=== PATIENT | male | born 2000 | race American Indian/Alaskan Native ===

== ENCOUNTER 2021-02-04 11:06 | Observation (INO) | payer OTHER, MEDICAID ==
[2021-02-04] MEDS ORDERED: Lactated Ringers 1,000 ML IV ONE (11:28)
[2021-02-04] MEDS ORDERED: Morphine 4 MG/ML Syringe IVPUSH ONE (11:31)
[2021-02-04] MEDS ORDERED: Iopamidol 612 MG/ML 100 ML Bottle IVPUSH ONE (11:31)
[2021-02-04 11:50] LABS: ANION GAP 15.7 mEq/L (7-13); CHLORIDE,CL 100 mmol/L (98-107); SODIUM,NA 141 mmol/L (136-145)
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
[2021-02-04] MEDS ORDERED: Sodium Chloride 0.9% 10 ML Syringe FLUSH PRN (14:10)
[2021-02-04] MEDS ORDERED: Acetaminophen 325 MG Tab PO PRN (14:10)
[2021-02-04] MEDS ORDERED: Morphine 2 MG/ML SYRINGE IVPUSH PRN (14:10)
[2021-02-04] MEDS ORDERED: Ondansetron 4 MG/2 ML SDV IVPUSH PRN (14:10)
[2021-02-04] MEDS ORDERED: Diphtheria,Pertussis(Acell),Tetanus Vaccine 0.5 ML Syringe IM ONE (14:14)
[2021-02-04] MEDS ORDERED: LORazepam 2 MG/ML SDV IV PRN (14:14)
[2021-02-04] MEDS ORDERED: Bacitracin Oint 28.35 GM Tube TOP SCH (14:15)
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
[2021-02-04] MEDS: Sodium Chloride 0.9% 1,000 ML IV SCH (15:07)
[2021-02-04] MEDS: Acetaminophen/oxyCODONE 325-5 MG Tab PO PRN (17:21)
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
[2021-02-05] MEDS: Acetaminophen/oxyCODONE 325-5 MG Tab PO PRN ×2 (00:17→08:36)
[2021-02-05] MEDS: Sodium Chloride 0.9% 1,000 ML IV SCH (03:23)
[2021-02-05 07:01] LABS: ANION GAP 10.6 mEq/L (7-13); CHLORIDE,CL 104 mmol/L (98-107); SODIUM,NA 140 mmol/L (136-145)
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
--- NOTE | 2021-02-05 08:59 | CR ---
PROCEDURE INFORMATION: Exam: XR Chest Exam date and time: 02/05/2021 8:07 AM Age: 20 years old Clinical indication: Pain; Other: Chest HX trauma TECHNIQUE: Imaging protocol: XR of the chest. Views: 1 view. COMPARISON: CT Chest Abdomen Pelvis w Cont 02/04/2021 11:38 AM FINDINGS: Lungs: Unremarkable. No consolidation. Pleural spaces: Unremarkable. No pleural effusion. No pneumothorax. Heart/Mediastinum: Unremarkable. No cardiomegaly. Bones/joints: Unremarkable. IMPRESSION: No evidence for acute pulmonary disease.
[2021-02-05] MEDS: Bacitracin Oint 28.35 GM Tube TOP SCH (09:56)
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
[2021-02-06] MEDS: Acetaminophen/oxyCODONE 325-5 MG Tab PO PRN (09:49)
[2021-02-06] MEDS: Bacitracin Oint 28.35 GM Tube TOP SCH (10:47)
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
== END 2021-02-06 13:30 | disposition home or self-care (01) ==
LOC: DL.ED 11:06 → DL.MS 14:02
PROVIDERS: ADMIT Internal Medicine; ATTEND Internal Medicine
DX: F10.129 Alcohol abuse with intoxication, unspecified (principal); E88.09 Other disorders of plasma-protein metabolism, not elsewhere classified; R74.01 Elevation of levels of liver transaminase levels; F17.200 Nicotine dependence, unspecified, uncomplicated; Z20.822 Contact with and (suspected) exposure to COVID-19; V89.2XXA Person injured in unspecified motor-vehicle accident, traffic, initial encounter; Z98.890 Other specified postprocedural states
CPT/HCPCS: 36415; 70450; 71045; 71260; 72125; 73560; 73700; 74177; 80053; 80305; 80307; 82550; 84484; 85025; 85610; 85730; 87635; 90471; 90715; 97161; 99217; 99219; 99225; A9270; J2270; J7030; J7120; Q9967; U0002

== ENCOUNTER 2022-01-09 13:04 | Emergency (ER) | payer MEDICAID ==
[2022-01-09 14:12] LABS: CORONAVIRUS COVID-19 NAA NEGATIVE (NEGATIVE)
[2022-01-09 14:40] LABS: ANION GAP 14.9 mEq/L (7-13); CHLORIDE,CL 105 mmol/L (98-107); SODIUM,NA 142 mmol/L (136-145)
[2022-01-09] MEDS: Codeine/guaiFENesin 10-100 MG/5 ML Syrup 5 ML Cup PO ONE (14:54)
[2022-01-09] MEDS: Cephalexin 500 MG Cap PO ONE (16:00)
== END 2022-01-09 16:02 | disposition home or self-care (01) ==
LOC: DL.ED 13:04
DX: J40 Bronchitis, not specified as acute or chronic (principal); F17.210 Nicotine dependence, cigarettes, uncomplicated; Z20.822 Contact with and (suspected) exposure to COVID-19
CPT/HCPCS: 0240U; 36415; 71046; 80053; 83605; 85025; 87040; 99283; 99284; A9270

== ENCOUNTER 2022-10-04 21:43 | Emergency (ER) | payer MEDICAID | END 2022-10-04 23:09 | LOC: DL.ED 21:43 | DX: Z02.89 Encounter for other administrative examinations (principal); Z20.822 Contact with and (suspected) exposure to COVID-19 | CPT/HCPCS: 99282; 99283; U0002 ==

== ENCOUNTER 2024-10-20 07:42 | Emergency (ER) | payer MEDICAID ==
[2024-10-20] MEDS: Lidocaine 1% 30 ML SDV INJECT ONE (08:30)
[2024-10-20] MEDS: Ibuprofen 800 MG Tab PO ONE (10:09)
[2024-10-20] MEDS: Bacitracin Oint 1 GM U/D Packet TOP ONE (10:09)
== END 2024-10-20 10:13 | disposition home or self-care (01) ==
LOC: DL.ED 07:42
DX: S01.111A Laceration without foreign body of right eyelid and periocular area, initial encounter (principal); S40.011A Contusion of right shoulder, initial encounter; I10 Essential (primary) hypertension; Z79.899 Other long term (current) drug therapy; W00.0XXA Fall on same level due to ice and snow, initial encounter; Y93.9 Activity, unspecified; Y92.9 Unspecified place or not applicable
CPT/HCPCS: 12013; 73000; 73030; 99284; A9270; J3490

== ENCOUNTER 2025-01-13 20:27 | Emergency (ER) | payer MEDICAID | END 2025-01-13 20:41 | disposition home or self-care (01) | LOC: DL.ED 20:27 | DX: S93.402A Sprain of unspecified ligament of left ankle, initial encounter (principal); S20.212A Contusion of left front wall of thorax, initial encounter; I10 Essential (primary) hypertension; F17.210 Nicotine dependence, cigarettes, uncomplicated; Z79.899 Other long term (current) drug therapy; X58.XXXA Exposure to other specified factors, initial encounter | CPT/HCPCS: 71100-LT; 73630-LT; 99282; 99283 ==

== ENCOUNTER 2025-02-13 03:25 | Emergency (ER) | payer MEDICAID ==
[~2025-02-13 03:25] MED LIST: Sodium Chloride 0.9% 10 ML Syringe FLUSH PRN
[2025-02-13 03:31] LABS: HEMATOCRIT 45.5 % (40.0-54.0); HEMOGLOBIN 15.5 g/dL (14.0-18.0); MEAN CORPUSCULAR HEMOGLOBIN 30.6 pg (27.0-34.0); MEAN CORPUSCULAR HGB CONC 34.1 g/dL (33.0-35.0); MEAN CORPUSCULAR VOLUME 89.7 fL (80-100); PLATELET COUNT,PLT 284 10^3/uL (150-450); RED BLOOD CELL COUNT 5.07 10^6/uL (4.6-6.2); WHITE BLOOD CELL COUNT,WBC 11.6 10^3/uL (5.0-10.0)
[2025-02-13 03:36] LABS: EOSINOPHILS PERCENT AUTO 1.8 % (1.0-3.0); LYMPHOCYTES PERCENT AUTO 38.4 % (20.5-50.1); MONOCYTES PERCENT AUTO 9.4 % (2-8); NEUTROPHILS PERCENT AUTO 50.1 % (42.2-75.2)
[2025-02-13 03:37] LABS: BASOPHILS PERCENT AUTO 0.3 % (0.0-1.0)
[2025-02-13] MEDS ORDERED: Lidocaine 1% with EPINEPHrine 1:100,000 20 ML MDV INJECT ONE (03:41)
[2025-02-13 03:50] LABS: PROTHROMBIN TIME 10.1 SEC (9.0-12.0); PTT,PARTIAL THROMBOPLSTIN TIME 22.5 SEC (22.0-34.0)
[2025-02-13] MEDS ORDERED: fentaNYL 100 MCG/2 ML SDV IVPUSH ONE (03:50)
[2025-02-13] MEDS ORDERED: Naloxone 2 MG/2 ML Syringe IVPUSH PRN (03:50)
[2025-02-13] MEDS ORDERED: Midazolam 1 MG/ML 2 ML SDV IVPUSH ONE ×2 (03:51→04:23)
[2025-02-13 03:52] LABS: A/G RATIO 1.1; ALANINE AMINOTRANSFERASE,ALT 327 U/L (16-63); ALBUMIN 4.1 g/dL (3.4-5.0); ALKALINE PHOSPHATASE 140 U/L (46-116); ANION GAP 19.8 mEq/L (7-13); BILIRUBIN TOTAL 0.3 mg/dL (0.2-1.0); BLOOD UREA NITROGEN,BUN 16 mg/dL (7-18); BUN/CREATININE RATIO 12.6 (No establ ref range); CARBON DIOXIDE,CO2 19 mmol/L (21-32); CHLORIDE,CL 110 mmol/L (98-107); CREATININE 1.27 mg/dL (0.70-1.30); ETHANOL BLOOD MEDICAL 290 mg/dL (0); GLUCOSE RANDOM 131 mg/dL (70-99); POTASSIUM,K 3.8 mmol/L (3.5-5.1); PROTEIN TOTAL,TP 7.9 g/dL (6.4-8.2); SODIUM,NA 145 mmol/L (136-145)
[2025-02-13 03:58] LABS: BAND PERCENT MAN 2 %; EOSINOPHILS PERCENT MAN 2 % (1-3); LYMPHOCYTES PERCENT MAN 37 % (20-50); MONOCYTES PERCENT MAN 10 % (2-8); SEG NEUTROPHILS PERCENT MAN 49 % (42-75)
[2025-02-13 04:01] LABS: ASPARTATE AMNIOTRANSFERASE,AST 141 U/L (15-37); ESTIMATED GFR 80 mL/min (>=60)
[2025-02-13] MEDS: Iopamidol 755 Mg/ML 100 ML Bottle IVPUSH ONE (05:03)
== END 2025-02-13 05:45 ==
LOC: DL.ED 03:25
DX: S27.0XXA Traumatic pneumothorax, initial encounter (principal); J96.01 Acute respiratory failure with hypoxia; I10 Essential (primary) hypertension; Z79.899 Other long term (current) drug therapy; Y09 Assault by unspecified means
CPT/HCPCS: 32551; 36415; 51702; 70450; 70486; 71045; 71260; 72125; 73100; 74177; 80053; 80307; 85025; 85610; 85730; 86850; 86900; 86901; 99291; 99292; G0390; Q9967